=== PATIENT | female | born 1955 | race Hispanic/Latino ===

== ENCOUNTER 2019-09-26 07:51 | Outpatient (CLI) | payer BC ==
--- NOTE | 2019-09-26 08:53 | MMO ---
Bilateral MAMMO Bilat Screen [facility]. CLINICAL HISTORY: Patient is 63 years old and is seen for screening. The patient has no family history of breast cancer. The patient has no personal history of cancer. VIEWS: The views performed were: bilateral craniocaudal with tomosynthesis and bilateral mediolateral oblique with tomosynthesis. FILMS COMPARED: The present examination has been compared to prior imaging studies performed at [facility] on 03/28/2011 and 03/14/2013. This study has been interpreted with the assistance of computer-aided detection. MAMMOGRAM FINDINGS: The breasts are almost entirely fat. There is an oval mass measuring 4 millimeters with circumscribed margins seen in the anterior region of the right breast at 6 o'clock. In the left breast, there are no suspicious masses, calcifications or areas of architectural distortion. IMPRESSION: MASS IN THE RIGHT BREAST REQUIRES ADDITIONAL EVALUATION. AN ULTRASOUND EXAM IS RECOMMENDED. THE RESULTS OF THIS EXAM WERE SENT TO THE PATIENT. ACR BI-RADS Category 0 - Incomplete: Need additional imaging evaluation. [facility] will notify the patient of the need for additional imaging services. MAMMOGRAPHY NOTE: 1. A negative mammogram report should not delay a biopsy if a dominant of clinically suspicious mass is present. 2. Approximately 10% to 15% of breast cancers are not detected by mammography. 3. Adenosis and dense breasts may obscure an underlying neoplasm. Reported by: ADWOA PALACIOS MD Electonically Signed: [id number]
--- NOTE | 2019-09-26 09:30 | BD ---
DEXA SCAN: Date: 09/26/2019 INDICATION: Menopause. COMPARISON: None. FINDINGS/IMPRESSION: Lumbar Spine: BMD (g/cm2) L1 1.034 T-Score: 0.4 Z-Score: 1.8 L2 1.113 T-Score: 0.8 Z-Score: 2.4 L3 1.095 T-Score: 0.1 Z-Score: 1.8 L4 1.046 T-Score: -0.1 Z-Score: 1.6 L1-L4 1.072 T-Score: 0.2 Z-Score: 1.8 Left Femoral Neck: 0.911 T-Score: 0.6 Z-Score: 2.0 Left Total Hip: 1.179 T-Score: 1.9 Z-Score: 3.0 IMPRESSION: Based on WHO criteria, the patient's bone mineral density is normal. The patient is at low risk for f racture. POS: BH
== END 2019-09-26 07:52 | disposition home or self-care (01) ==
LOC: BICMAMMO 07:51
PROVIDERS: ATTEND Family Medicine
DX: Z12.31 Encounter for screening mammogram for malignant neoplasm of breast (principal); Z78.0 Asymptomatic menopausal state; N63.10 Unspecified lump in the right breast, unspecified quadrant
CPT/HCPCS: 77063; 77067; 77080